=== PATIENT | male | born 1995 | race Caucasian/White ===

== ENCOUNTER 2018-05-13 22:56 | Emergency (ER) | payer BC ==
[2018-05-13 23:03] VITALS: BP 152/95; PULSE 90; RESP 18; TEMP 96.8; O2SAT 99
== END 2018-05-13 23:35 | disposition home or self-care (01) ==
LOC: ED 22:56
DX: S39.94XA Unspecified injury of external genitals, initial encounter (principal)
CPT/HCPCS: 99282